=== PATIENT | male | born 1980 | race Two or more races ===

== ENCOUNTER 2017-04-19 22:08 | Inpatient (IN) | payer MEDICAID ==
[~2017-04-19] VITALS: Ht 170.2 cm; Wt 87.1 kg
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
[2017-04-19] MEDS ORDERED: TDAP [DIPH/PERTUSSIS/TET] 0.5 ML VIAL IM ONE ×2 (22:19→22:30)
[2017-04-19] MEDS ORDERED: HYDROCODONE/APAP 10/325MG 1 EA TABLET ONE (22:19)
--- NOTE | 2017-04-19 22:19 | NUR ---
[employer] officers at bedside talking to pt.
--- NOTE | 2017-04-19 22:26 | NUR ---
pt refuse to take po pain meds. er made aware.
[2017-04-19] MEDS ORDERED: MORPHINE SULFATE INJ 4 MG/ML DISP.SYRIN ONE (22:28)
[2017-04-19] MEDS ORDERED: ONDANSETRON HCL/PF 4 MG/2 ML VIAL ONE (22:28)
[2017-04-19] MEDS ORDERED: ONDANSETRON HCL/PF 4 MG/2 ML VIAL IV ONE (22:30)
[2017-04-19] MEDS ORDERED: HYDROCODONE/APAP 5/325MG 1 EACH TABLET PO ONE (22:30)
[2017-04-19] MEDS ORDERED: MORPHINE SULFATE INJ 2 MG/ML DISP.SYRIN IV ONE (22:30)
[2017-04-19] MEDS ORDERED: HYDROCODONE/APAP 10/325MG 1 EA TABLET PO ONE (22:30)
--- NOTE | 2017-04-19 22:32 | NUR ---
RN at bedside to give IV pain meds.
--- NOTE | 2017-04-19 22:35 | NUR ---
RN Quentin unable to give iv pain meds due to pt decreased o2 sat at 82, placed pt back on o2@4L/nc. er md lowe aware.
--- NOTE | 2017-04-19 22:42 | NUR ---
pt transported to radiology for ct's
--- NOTE | 2017-04-19 22:56 | NUR ---
pt back from radiology. pending ct results.
[2017-04-19] MEDS ORDERED: LIDOCAINE HCL/PF 1% 30 ML SDV ONE (23:36)
--- NOTE | 2017-04-19 23:51 | NUR ---
ER MONSERRAT Parekh at bedside for laceration repair. pt family member at bedside.
--- NOTE | 2017-04-20 | NUR ---
ct results received. er aware.
--- NOTE | 2017-04-20 00:01 | NUR ---
dietary cook at bedside for blood draw.
[2017-04-20] MEDS ORDERED: IV D5W 50 ML IV ONE (00:20)
[2017-04-20] MEDS ORDERED: IV NS 0.9% 1,000 ML IV PRN (00:20)
[2017-04-20] MEDS ORDERED: CEFAZOLIN 1 GM ONE (00:20)
[2017-04-20] MEDS ORDERED: IV SET PRIMARY PUMP SET 1 EA INFUS.SET MC ONE ×2 (00:21→01:39)
[2017-04-20] MEDS ORDERED: MAGNESIUM HYDROXIDE 30 ML UDC PO PRN (00:30)
[2017-04-20] MEDS ORDERED: MAG HYDROX/AL HYDROX/SIMETH 30 ML UDC PO PRN (00:30)
[2017-04-20] MEDS ORDERED: ZOLPIDEM TARTRATE 5 MG TABLET PO PRN (00:30)
[2017-04-20] MEDS ORDERED: MORPHINE SULFATE INJ 2 MG/ML DISP.SYRIN IV PRN (00:30)
[2017-04-20] MEDS ORDERED: CEFAZOLIN 1 GM in IV D5W 50 ML IV ONE (00:30)
[2017-04-20] MEDS ORDERED: Z GUARD REMEDY 2 OZ OINT TP PRN (00:30)
[2017-04-20] MEDS ORDERED: ONDANSETRON HCL/PF 4 MG/2 ML VIAL IVP PRN (00:30)
[2017-04-20] MEDS ORDERED: HYDROCODONE/APAP 5/325MG 1 EACH TABLET PO PRN (00:30)
[2017-04-20] MEDS ORDERED: ACETAMINOPHEN 325 MG TABLET PO PRN (00:30)
[2017-04-20 00:34] LABS: CALCIUM, SERUM 8.3 mg/dL (8.5-10.1); CREATININE 1.1 mg/dL (0.6-1.3); POTASSIUM 3.6 mmol/L (3.5-5.1)
[2017-04-20 00:47] LABS: HEMOGLOBIN 13.3 g/dL (13.5-17.5); RED BLOOD CELL COUNT(AUTO) 4.22 MIL/uL (4.5-6.0); WHITE BLOOD COUNT (AUTO) 14.4 K/uL (4.3-11.0)
[2017-04-20 00:48] LABS: BASOPHILS % (AUTO) 0.1 % (0.0-2.0); EOSINOPHILS % (AUTO) 0.3 % (0.0-6.0); HEMATOCRIT 39 % (39-51); LYMPHOCYTES % (AUTO) 9.5 % (20.0-44.0); MEAN CORPUSCULAR HEMOGLOBIN 32 PG (26.0-33.0); MEAN CORPUSCULAR HGB CONC 35 g/dl (31.0-36.0); MEAN CORPUSCULAR VOLUME 91 fL (80-96); MONOCYTES % (AUTO) 3.6 % (2.0-12.0); NEUTROPHILS % (AUTO) 86.5 % (43.0-81.0); PLATELET COUNT (AUTO) 226 /CMM (150-450); RDW COEFFICIENT OF VARIATION 12.1 (11.5-15.0)
--- NOTE | 2017-04-20 00:48 | NUR ---
report called to M/S LAURO Harrell. will graceort pt to room 324-2.
[2017-04-20 01:00] VITALS: BP 125/79
[2017-04-20 01:12] LABS: INR 0.95 (0.87-1.13); PROTHROMBIN TIME 10.1 SECS (9.5-12.7)
[2017-04-20] MEDS ORDERED: MORPHINE SULFATE INJ 4 MG/ML DISP.SYRIN ONE (01:38)
[2017-04-20] MEDS ORDERED: ONDANSETRON HCL/PF 4 MG/2 ML VIAL ONE (01:38)
[2017-04-20] MEDS ORDERED: IV NS 0.9% 1,000 ML ONE (01:39)
[2017-04-20 02:51] VITALS: BP 125/79
--- NOTE | 2017-04-20 06:38 | NUR ---
MS RN NOTES AWAKE & RESPONSIVE. NOT IN ANY DISTRESS. NO SOB NOTED. DENIES ANY PAIN OR DISCOMFORT AT THIS TIME. WITH IVF INFUSING WELL. MONITORED ACCORDINGLY. CALL LIGHT WITHIN REACH. BED IN LOWEST POSITION. SR UP X 2 FOR SAFETY WITH BED ALARM ON FOR SAFETY. WILL ENDORSE TO NEXT SHIFT.
[2017-04-20] MEDS ORDERED: PANTOPRAZOLE 40 MG TABLET.DR PO SCH (07:30)
--- NOTE | 2017-04-20 07:47 | NUR ---
RN OPENING NOTES RECEIVED PATIENT IN BED, ASLEEP, HOB ELEVATED, NO SOB OR DISTRESS NOTED. A/O X 3, VERBALLY RESPONSIVE AND ABLE TO MAKE NEEDS KNOWN IN [place]. IV INTACT AND PATENT. KEPT PATIENT CLEAN AND COMFORTABLE IN BED, CALL LIGHT WITHIN PATIENT REACH. WILL CONTINUE TO MONITOR ACCORDINGLY.
[2017-04-20 08:00] VITALS: BP 125/69
[2017-04-20 08:23] LABS: BASOPHILS # (AUTO) 0.1 /CMM (0.0-0.2); BASOPHILS % (AUTO) 0.9 % (0.0-2.0); EOSINOPHILS % (AUTO) 0.2 % (0.0-6.0); HEMATOCRIT 39 % (39-51); HEMOGLOBIN 13.5 g/dL (13.5-17.5); LYMPHOCYTES # (AUTO) 1.9 /CMM (0.8-4.8); LYMPHOCYTES % (AUTO) 16.2 % (20.0-44.0); MEAN CORPUSCULAR HEMOGLOBIN 32 PG (26.0-33.0); MEAN CORPUSCULAR HGB CONC 34 g/dl (31.0-36.0); MEAN CORPUSCULAR VOLUME 92 fL (80-96); MONOCYTES # (AUTO) 0.8 /CMM (0.1-1.30); MONOCYTES % (AUTO) 7.2 % (2.0-12.0); NEUTROPHILS # (AUTO) 8.7 /CMM (1.8-8.9); NEUTROPHILS % (AUTO) 75.5 % (43.0-81.0); PLATELET COUNT (AUTO) 222 /CMM (150-450); RDW COEFFICIENT OF VARIATION 12.2 (11.5-15.0); RED BLOOD CELL COUNT(AUTO) 4.28 MIL/uL (4.5-6.0); WHITE BLOOD COUNT (AUTO) 11.6 K/uL (4.3-11.0)
[2017-04-20] MEDS ORDERED: Thiamine 100 MG in IV D5W 50 ML IV SCH (08:30)
[2017-04-20] MEDS ORDERED: Folic acid 1 MG in IV D5W 50 ML IV SCH (08:30)
[2017-04-20 08:40] LABS: CALCIUM, SERUM 8.5 mg/dL (8.5-10.1); CREATININE 1.1 mg/dL (0.6-1.3); POTASSIUM 3.8 mmol/L (3.5-5.1)
[2017-04-20] MEDS: AMOX/CLAVULANATE 875 MG TABLET PO SCH ×2 (08:52→16:28)
[2017-04-20 09:15] LABS: INR 0.96 (0.87-1.13); PROTHROMBIN TIME 10.2 SECS (9.5-12.7)
[2017-04-20] MEDS ORDERED: SECONDARY IV SET 1 EA INFUS.SET MC ONE (09:26)
--- NOTE | 2017-04-20 12:45 | NUR ---
RN NOTES PATIENT WITH AND 3 CHILDREN AT BEDSIDE IN STABLE CONDITION.
[2017-04-20 16:00] VITALS: BP 110/72
--- NOTE | 2017-04-20 16:14 | NUR ---
RN NOTES PATIENT IS LYING DOWN ON BED WITH NO SOB OR DISTRESS NOTED.
--- NOTE | 2017-04-20 17:55 | NUR ---
RN NOTES DISCHARGE INSTRUCTIONS GIVEN TO PATIENT AND ABLE TO UNDERSTAND INSTRUCTIONS AND SIGNED DISCHARGE PAPER AND BELONGINGS LIST. PICTURES TAKEN AND FILE IN THE PATIENT CHART. PATIENT LEFT WALKING ACCOMPANIED WITH IN STABLE CONDITION. NO SOB OR DISTRESS NOTED. VITALS SIGNS CHECKED AND RECORDED. MD AND CHARGE NURSE AWARE.
== END 2017-04-20 18:42 | disposition home or self-care (01) | DRG 114 ==
LOC: ER 22:10 → MED 04-20 00:29
PROVIDERS: ADMIT Nurse Practitioner Acute Care; ATTEND Nurse Practitioner Acute Care
PROC: 0HQ1XZZ Repair Face Skin, External Approach (ICD-10-PCS; principal; 2017-04-20)
DX: S02.40EA Zygomatic fracture, right side, initial encounter for closed fracture (principal); S02.31XA Fracture of orbital floor, right side, initial encounter for closed fracture; S01.81XA Laceration without foreign body of other part of head, initial encounter; S02.40CA Maxillary fracture, right side, initial encounter for closed fracture; Y04.8XXA Assault by other bodily force, initial encounter; Y93.9 Activity, unspecified; Y92.89 Other specified places as the place of occurrence of the external cause; Y99.9 Unspecified external cause status
CPT/HCPCS: 36415; 70450-TC; 70486-TC; 71010-TC; 72125-TC; 80048-TC; 85025-TC; 85610-TC; 85730-TC; 87081-TC; 90715; A4606; A6403; G0480; J0690; J2270; J2405; J3411; J3490; J7030; J7060; Z7610